=== PATIENT | male | born 1990 | race Caucasian/White ===

== ENCOUNTER 2017-07-17 21:53 | Emergency (ER) | payer OTHER ==
[~2017-07-17] VITALS: Ht 182.9 cm; Wt 86.2 kg
[2017-07-17] MEDS ORDERED: CIPROFLOXACIN500 M1 PO (22:40)
[2017-07-17] MEDS ORDERED: FLAGYL500 MG PO (22:40)
[2017-07-17] MEDS ORDERED: HYDROCODONE-AP1 EAC6 PO (22:40)
[2017-07-17 22:54] VITALS: BP 112/68
== END 2017-07-17 22:55 | disposition home or self-care (01) ==
LOC: M.ERS 21:53
DX: K61.1 Rectal abscess (principal); F17.200 Nicotine dependence, unspecified, uncomplicated; Z90.49 Acquired absence of other specified parts of digestive tract; Z91.041 Radiographic dye allergy status